=== PATIENT | female | born 2000 | race Caucasian/White ===

== ENCOUNTER 2023-01-12 11:18 | Emergency (ER) | payer BC ==
[2023-01-12] MEDS ORDERED: LORazepam 2 MG/ML SDV IVPUSH ONE ×2 (12:11→13:52)
[2023-01-12] MEDS ORDERED: Sodium Chloride 0.9% 1,000 ML IV ONE (12:11)
[2023-01-12] MEDS ORDERED: Sodium Chloride 0.9% 10 ML Syringe FLUSH PRN (12:11)
[2023-01-12] MEDS ORDERED: Ondansetron 4 MG/2 ML SDV IVPUSH ONE (12:11)
[2023-01-12] MEDS ORDERED: Ketorolac 30 MG/ML SDV IVPUSH ONE (13:52)
== END 2023-01-12 14:10 | disposition home or self-care (01) ==
LOC: JD.ED 11:18
DX: F10.230 Alcohol dependence with withdrawal, uncomplicated (principal); R56.9 Unspecified convulsions; Z72.0 Tobacco use
CPT/HCPCS: 36415; 80053; 80307; 83735; 85025; 96361; 96374; 96375; 96376; 99284; J1885; J2060; J2405; J3490; J7030; 99283

== ENCOUNTER 2023-01-13 10:10 | Emergency (ER) | payer BC ==
[2023-01-13] MEDS ORDERED: Haloperidol Lactate 5 MG/ML SDV IVPUSH ONE (10:43)
[2023-01-13] MEDS ORDERED: diphenhydrAMINE 50 MG/ML SDV IVPUSH ONE (10:43)
[2023-01-13] MEDS ORDERED: LORazepam 2 MG/ML SDV IVPUSH ONE ×2 (10:43→18:02)
[2023-01-13] MEDS ORDERED: Lactated Ringers 1,000 ML IV ONE (12:41)
[2023-01-13] MEDS: Potassium Chloride 10 MEQ in Premix Bag 1 BAG IV SCH ×4 (13:40→17:17)
== END 2023-01-13 18:27 | disposition home or self-care (01) ==
LOC: JD.ED 10:10
DX: F15.10 Other stimulant abuse, uncomplicated (principal)
CPT/HCPCS: 36415; 80053; 80307; 85025; 96365; 96366; 96375; 96376; 99284; J1200; J1630; J2060; J3480; J7120; 99283

== ENCOUNTER 2023-01-22 03:13 | Emergency (ER) | payer BC ==
[2023-01-22] MEDS: Sodium Chloride 0.9% 10 ML Syringe FLUSH PRN ×2 (03:30→03:43)
[2023-01-22] MEDS ORDERED: Sodium Chloride 0.9% 1,000 ML IV SCH (03:30)
[2023-01-22] MEDS ORDERED: LORazepam 2 MG/ML SDV IVPUSH ONE ×2 (03:35→03:38)
[2023-01-22] MEDS: LORazepam 2 MG/ML SDV ONE ×2 (03:40→06:23)
[2023-01-22] MEDS ORDERED: Lactated Ringers 1,000 ML IV ONE (04:57)
[2023-01-22] MEDS ORDERED: Lactated Ringers 1,000 ML IV SCH (05:10)
== END 2023-01-22 08:30 | disposition home or self-care (01) ==
LOC: JD.ED 03:13
DX: F10.920 Alcohol use, unspecified with intoxication, uncomplicated (principal)
CPT/HCPCS: 36415; 70450; 80053; 80306; 80307; 83735; 85025; 96361; 96374; 99285; J2060; J3490; J7030; J7120; 99283